=== PATIENT | female | born 1935 ===

== ENCOUNTER 2018-08-17 07:58 | Outpatient (CLI) | payer OTHER ==
[~2018-08-17] VITALS: Ht 152.4 cm; Wt 61.2 kg
== END 2018-08-17 08:15 | disposition home or self-care (01) ==
LOC: OFIC 805 07:58
DX: H61.23 Impacted cerumen, bilateral (principal); H90.3 Sensorineural hearing loss, bilateral; R42 Dizziness and giddiness; H93.13 Tinnitus, bilateral